=== PATIENT | male | born 1985 | race Caucasian/White ===

== ENCOUNTER 2019-06-07 07:24 | Day surgery (SDC) | payer OTHER ==
[~2019-06-07] VITALS: Ht 175.3 cm; Wt 74.5 kg
[2019-06-07 08:23] VITALS: BP 133/89
[2019-06-07] MEDS ORDERED: HYDR-3240 PO (08:27)
[2019-06-07] MEDS ORDERED: GABAPENTIN 300 MG CAPSULE PO ONE (08:30)
[2019-06-07] MEDS ORDERED: ACETAMINOPHEN 500 MG TABLET PO ONE (08:30)
[2019-06-07] MEDS ORDERED: SCOPOLAMINE PATCH, 1.5MG PATCH.TD72 TD ONE (08:30)
[2019-06-07] MEDS ORDERED: LACTATED RINGERS 1,000 ML IV SCH (08:31)
[2019-06-07] MEDS ORDERED: MIDAZOLAM 1 MG/ML, 2ML ONE (08:55)
[2019-06-07] MEDS ORDERED: FENTANYL PF 100 MCG/2ML ONE (08:55)
[2019-06-07] MEDS ORDERED: PROPOFOL 50 ML ONE (10:04)
[2019-06-07] MEDS ORDERED: MIDAZOLAM 1 MG/ML, 2ML IV PRN (10:30)
[2019-06-07] MEDS ORDERED: MEPERIDINE/PF 25MG/ML,1ML IVPush PRN (10:30)
[2019-06-07] MEDS ORDERED: FENTANYL PF 100 MCG/2ML IV PRN (10:30)
[2019-06-07] MEDS ORDERED: HYDROmorphone 2 MG/ML, 1ML IVPush PRN (10:30)
[2019-06-07] MEDS ORDERED: ALBUTEROL/IPRATROPIUM 2.5MG/0.5MG, 3 ML NPPB PRN (10:30)
[2019-06-07] MEDS ORDERED: hydrALAzine 20 MG/ML, 1ML IV PRN (10:30)
[2019-06-07] MEDS ORDERED: PROMETHAZINE 25 MG/ML, 1ML IV PRN (10:30)
[2019-06-07] MEDS ORDERED: OXYcodone 5 MG/5 ML ORAL.SOL UDC PO PRN (10:30)
[2019-06-07] MEDS ORDERED: BUPIVACAINE/PF 0.5% ONE (10:45)
[2019-06-07] MEDS ORDERED: DEXAMETHASONE 4 MG/ML, 1ML ONE (10:46)
[2019-06-07] MEDS ORDERED: ONDANSETRON 2MG/ML, 2ML ONE (10:46)
[2019-06-07] MEDS ORDERED: PROPOFOL 10 MG/ML, 20ML ONE (10:46)
[2019-06-07] MEDS ORDERED: CEFAZOLIN 1,000 MG ONE (10:46)
== END 2019-06-07 12:48 | disposition home or self-care (01) ==
LOC: OUT 07:24
PROVIDERS: ATTEND Orthopaedic Surgery
DX: S82.61XA Displaced fracture of lateral malleolus of right fibula, initial encounter for closed fracture (principal); Z72.89 Other problems related to lifestyle; Z79.891 Long term (current) use of opiate analgesic; Z98.890 Other specified postprocedural states; X50.1XXA Overexertion from prolonged static or awkward postures, initial encounter; Y93.29 Activity, other involving ice and snow; Y92.480 Sidewalk as the place of occurrence of the external cause; Y99.8 Other external cause status
CPT/HCPCS: 27792; 64445; 73610; C1713; J0690; J1100; J2250; J2405; J2704; J3010; J7120; 76000

== ENCOUNTER 2020-03-21 16:59 | Emergency (ER) | payer OTHER ==
[~2020-03-21] VITALS: Ht 175.3 cm; Wt 74.8 kg
[~2020-03-21 16:59] MED LIST: HYDR-3240 PO
--- NOTE | 2020-03-21 18:01 | NUR ---
PT TO ROOM AT THIS TIME. CESAR
--- NOTE | 2020-03-21 18:01 | NUR ---
34 Y/O MALE PRESENTS TO ED WITH C/O ABD PAIN 3 WEEKS AGO. PER PT "I HAVE SOME BELLY PAIN. I GOT SOME ANTIBIOTICS TWO WEEKS AGO. THEY WERE FOR ONE WEEK. THEN THE NEXT WEEK I STARTED FEELING THE SYMPTOMS. IT HURTS A LITTLE WHEN I PEE TOO. NOW I FEEL LIKE I'M HAVING STOMACH GASES." PT PLACED ON CONT PULSE OX,NIBP. NO C/O N/V/D, TRAUMA, SYNCOPE, CP, SOB.
[2020-03-21 18:21] LABS: BASOPHILS # (AUTO) 0.04 x10^3/uL (0-0.1); BASOPHILS % (AUTO) 1 % (0-1); EOSINOPHILS # (AUTO) 0.09 x10^3/uL (0-0.4); EOSINOPHILS % (AUTO) 2 % (1-7); LYMPHOCYTES # (AUTO) 2.33 x10^3/uL (1-3.4); LYMPHOCYTES % (AUTO) 43 % (22-44); MD NO; MEAN CORPUSCULAR HEMOGLOBIN 29.3 pg (27.5-34.5); MEAN CORPUSCULAR HGB CONC 33.8 g/dL (33.2-36.2); MEAN CORPUSCULAR VOLUME 86.8 fL (81-97); MEAN PLATELET VOLUME 7.8 fL (7.4-10.4); MONOCYTES # (AUTO) 0.43 x10^3/uL (0.2-0.8); MONOCYTES % (AUTO) 8 % (2-9); NEUTROPHILS # (AUTO) 2.53 x10^3/uL (1.8-6.8); NEUTROPHILS % (AUTO) 47 % (42-75); PLATELET COUNT 272 x10^3/uL (130-400); RED BLOOD COUNT 5.12 x10^6/uL (4.38-5.82); RED CELL DISTRIBUTION WIDTH 13.1 % (9.4-14.8)
--- NOTE | 2020-03-21 18:23 | NUR ---
PT AMBULATORY WITH STEADY GAIT TO BATHROOM. CESAR
[2020-03-21 18:32] LABS: ALANINE AMINOTRANSFERASE 26 U/L (12-78); ALBUMIN 4.5 g/dL (3.4-5.0); ANION GAP 7 mmol/L (5-15); CALCIUM 8.7 mg/dL (8.5-10.1); CHLORIDE 108 mmol/L (98-107); CREATININE 0.87 mg/dL (0.7-1.3)
[2020-03-21 18:35] LABS: ALKALINE PHOSPHATASE 40 U/L (45-117); BILIRUBIN,TOTAL 1.1 mg/dL (0.2-1.0); TOTAL PROTEIN 7.4 g/dL (6.4-8.2)
--- NOTE | 2020-03-21 18:39 | NUR ---
UA SENT TO LAB.
[2020-03-21 18:51] LABS: MICROSCOPIC NOT IND
--- NOTE | 2020-03-21 18:54 | NUR ---
BEDSIDE REPORT TO RADHIKA BABCOCK
[2020-03-21] MEDS ORDERED: POTASSIUM CHLORIDE 20 MEQ TAB.ER.PRT ONE (19:28)
[2020-03-21] MEDS ORDERED: POTASSIUM CHLORIDE 20 MEQ TAB.ER.PRT PO ONE (19:30)
[2020-03-21 19:36] VITALS: BP 130/86
== END 2020-03-21 19:38 | disposition home or self-care (01) ==
LOC: ED 18:35
DX: K59.00 Constipation, unspecified (principal); R10.84 Generalized abdominal pain
CPT/HCPCS: 36415; 80053; 81003; 83690; 85025; 99283